=== PATIENT | female | born 1950 | race Caucasian/White ===

== ENCOUNTER → 2017-12-20 | Day surgery (SDC) | payer OTHER ==
[~2017-12-20] MED LIST: ACETAMINOPHEN 1000 MG/100 ML 100 ML IV ONE; ACETAMINOPHEN/HYDROcodone 325 MG/5 MG TAB ONE; BUPIVACAINE/EPINEPHRINE 0.5% PF 30 ML VIAL ONE; ISOSULFAN BLUE 50 MG/5 ML VIAL SQ ONE; KETOROLAC TROMETHAMINE 30 MG/ML (IVP) VIAL IV PUSH ONE; LACTATED RINGER'S 1000 ML INJ 1,000 ML ONE; MIDAZOLAM HCL 2 MG/2 ML VIAL ONE; ONDANSETRON HCL 4 MG/2 ML VIAL IV PUSH ONE; PROPOFOL 200 MG/20 ML AMP IV ONE; RESP: ALBUTEROL 2.5 MG/3 ML NEB (SCH) ONE; ceFAZolin 2 GM PREMIX 50 ML ONE
--- NOTE | 2017-12-20 14:37 | PD.OP ---
cc: Jacobo Estrella MD Operative Report Date of Surgery: Dec 20, 2017 Preoperative Diagnosis: L breast multifocal invasive carcinoma Postoperative Diagnosis: same Procedure: L total mastectomy with left axillary sentinel lymph node biopsy Anesthesia: general Surgeon: Jacobo Estrella Travel Counselor(s): BROOKS Silva Operation and Findings: This procedure was assisted by my nurse practitioner. The skill set of an STATEMENT [employer]ERKS SUPERVISOR was medically necessary to provide improved efficiency and safety in the completion of the procedure. During the procedure the nurse practitioner was providing retraction during the mastectomy and sentinel lymph node biopsy. technical mgr was at the back table providing appropriate instrumentation, while the nurse practitioner directly assisted me through the entirety of the procedure. Indications for procedure this is a very pleasant 67-year-old woman with anxiety disorder a multifocal left breast cancer. Her surgery was delayed due to her having to fill the role of a caregiver for her who recently underwent surgery and has a colostomy. Intraoperative findings left breast with axillary tail sent to pathology with a short stitch at 12:00 long stitch at axillary tail looped suture at sentinel lymph node #1 which had a 10 second count of 14,866. Non-sentinel lymph nodes included in the mastectomy specimen. 2 additional sentinel lymph nodes were removed from the left axilla one tiny node in the inferior axilla with a 10 second count of 2560 and sentinel lymph node #3 a larger lymph node in the superior axilla and a 10 second count of 2793. Estimated blood loss less than 20 mL. Description of procedure in detail Patient was identified as Kaelyn Mohan and he taken to the operating room and placed in a supine position. Sequential compression device were placed on bilateral lower extremities. Following induction of adequate general anesthesia with a laryngeal mask left breast was prepped and draped in usual sterile fashion with Betadine. A timeout procedure was performed. Following completion timeout procedure everyone's satisfaction within the room the navigator probe was used to identify defined increase uptake with using the navigator probe increase uptake was identified within the axillary tail lymph node. This was marked with a looped suture. Specimen was passed off field as discussed above and sent for permanent pathologic evaluation. Irrigation ensued. Hemostasis was assured. Care was taken to try to preserve as many intercostal brachial nerve branches as possible. Hemostasis was assured. A separate stab incision inferior medial a 10 Finnish fluted drain was placed into the wound with the tip of the drain in the axilla. Was held position level skin with 3-0 nylon drain stitch. Wound was then closed in 2 layers using interrupted inverted 3-0 Vicryl sutures in a running 4-0 Monocryl subcuticular suture. Dressings were applied with a Biopatch around the drain exit site Mastisol and a roverto dressing roverto dressing was placed to suction there was no evidence of leak. The patient tolerated the procedure without apparent complication. Sponge needle and instrument counts were correct at the end of the case. 25 cc of 0.5% Marcaine with epinephrine was infused through the drain and the drain bulb connected but not placed to suction. Patient was transported to PACU in stable condition. Drain: 10 Finnish fluted Using the navigator probe to additional sentinel lymph nodes were identified within the axilla to increase uptake using the probe. There is separate from surrounding tissues and excised in their entirety using the photon blade. Specimen sent for pathologic evaluation. No visually abnormal lymph nodes no palpably abnormal lymph nodes no additional increase uptake was identified within the axilla. In the axilla. Proposed incision of the breast for mastectomy was made with a marking pen. Incision was carried out the scalpel and hemostasis control with a photon blade. Superior and inferior black breast flaps were then developed using the photon blade. Breast was removed from the underlying pectoralis muscle including the fascia with the specimen superior medial to inferior lateral. The axillary tail of the breast was from the surrounding axillary fat pad. At least 3 lymph nodes were included in the axillary tail. 3-0 Vicryl ligature was used on lymphovascular structures connecting the axillary tail to the axillary fat pad. Jacobo Estrella MD Dec 20, 2017 14:37
== END | disposition home or self-care (01) ==
LOC: ESDC 08:01
PROVIDERS: ATTEND Surgery Trauma Surgery
DX: C50.812 Malignant neoplasm of overlapping sites of left female breast (principal); F41.9 Anxiety disorder, unspecified
CPT/HCPCS: 00400; 01610; 19303; 38525; 88307; J0131; J0690; J1885; J2250; J2405; J3010; J7120; J7613; Q9968